=== PATIENT | female | born 1970 | race Caucasian/White ===

== ENCOUNTER 2016-09-12 16:22 | Emergency (ER) | payer BC ==
[~2016-09-12] VITALS: Ht 175.3 cm; Wt 104.5 kg
[2016-09-12] MEDS ORDERED: ONDANSETRON 2MG/ML, 2ML IVPush ONE (17:00)
[2016-09-12] MEDS ORDERED: SODIUM CHLORIDE 0.9% 1,000ML IVBOLUS ONE (17:00)
[2016-09-12] MEDS ORDERED: SODIUM CHLORIDE FLUSH 10ML SYR IVF ONE (17:00)
[2016-09-12] MEDS ORDERED: ONDANSETRON 2MG/ML, 2ML ONE (17:02)
[2016-09-12] MEDS ORDERED: HYDROmorphone 1 MG/ML, 1ML ONE ×2 (17:02→18:38)
[2016-09-12] MEDS: HYDROmorphone 1 MG/ML, 1ML IVPush PRN ×2 (17:10→18:41)
[2016-09-12] MEDS ORDERED: GABA300C10 PO (17:17)
[2016-09-12] MEDS ORDERED: OMEP-110 PO (17:17)
[2016-09-12] MEDS ORDERED: B12/1TAB PO (17:18)
[2016-09-12 17:44] LABS: ASPARTATE AMINO TRANSFERASE 17 U/L (15-37); BLOOD UREA NITROGEN 10 mg/dL (7-18)
[2016-09-12 19:45] VITALS: BP 138/86
== END 2016-09-12 19:49 | disposition home or self-care (01) ==
LOC: ED 16:55
DX: M79.7 Fibromyalgia (principal)
CPT/HCPCS: 36415; 80053; 85025; 96361; 96374; 96375; 96376; 99285; J1170; J2405; J7030